=== PATIENT | female | born 2000 | race Caucasian/White ===

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

== ENCOUNTER 2021-09-27 09:51 | Emergency (ER) | payer OTHER, SELFPAY ==
[2021-09-27 09:52] VITALS: BP 127/65; PULSE 72; RESP 16; TEMP 36.6; O2SAT 99; BMI 20.7
--- NOTE | 2021-09-27 10:05 | CT_ITS ---
STUDY: CT ABDOMEN AND PELVIS WITH CONTRAST REASON FOR EXAM: Female, 21 years old. RLQ abdominal pain RADIATION DOSAGE (If Supplied By Facility): CTDIvol = ( 9.39 ) mGy, DLP = ( 271.47 ) mGycm TECHNIQUE: Transaxial images were obtained from the dome of the diaphragm to the symphysis pubis without oral contrast. IV 100mL Isovue-300 was administered. Sagittal and coronal images were reconstructed. Individualized dose optimization techniques were used for this CT. COMPARISON: None. FINDINGS: The visualized lung bases are unremarkable. The visualized portions of the heart are within normal limits. Normal liver. Normal gallbladder and extrahepatic biliary system. Normal spleen. Normal pancreas. Normal bilateral adrenal glands. Normal right kidney. Normal left kidney. Normal visualized stomach. Normal small intestine. Large amount of fecal material is seen in the colon. The appendix is visualized and appears normal. Normal abdominal aorta. Normal inferior vena cava. Normal retroperitoneum. Normal urinary bladder. There is a 2 cm x 2.5 cm right ovarian cyst. Small amount of free fluid is seen in the pelvis. Normal abdominal wall. Normal osseous structures. CT/Abdomen/Pelvis W IV Cont ONLY IMPRESSION: 2.5 cm x 2 cm right ovarian cyst. Small amount of free fluid in the pelvis. Electronically Signed: Rashid Alfredo MD at 11:15 EDT ,
--- NOTE | 2021-09-27 10:06 | EDS_ITS ---
HPI HPI - GI History of Present Illness Chief Complaint: Abd Pain Narrative Narrative: Patient who denies significant past medical history presents with her mother because of right lower quadrant abdominal pain. She states that yesterday she began having sharp, stabbing pain in her side on the right. It now moved towards her right lower quadrant. She states it feels like someone is stabbing her. She denies any fevers or chills. No nausea or vomiting. No dysuria or hematuria. No prior abdominal surgeries. Pain is worse with standing and walking. She also states that she feels constipated although she had a normal bowel movement yesterday. Last menstrual period was 2 weeks ago and regular. She tried Tums which did not help. No other exacerbating or alleviating factors. PFSH PFSH Home Medications sulfamethoxazole-trimethoprim [Bactrim DS] 1 tab PO BID #14 tab 09/27/21 [Rx Last Taken Unknown] Allergy/AdvReac Type Severity Reaction Status Date / Time No Known Allergies Allergy Verified 09/27/21 09:53 Social History Smoking Status: Never smoker ROS ROS ED ROS Narrative Constitutional: No fever, no chills. HEENT: No sore throat. No neck pain. No loss of vision. No rhinorrhea. Cardiovascular: No chest pain. No palpitations. No pedal edema. Respiratory: No cough, no shortness of breath. Abdominal: Right lower quadrant abdominal pain. No nausea. No vomiting. Genitourinary: No dysuria. No hematuria. Right flank pain yesterday, radiates towards front now. Musculoskeletal: No myalgias. No arthralgias. Neurologic: No headaches. No dizziness. No lightheadedness. Skin: No rash. No change in color. Psychiatric: No depression. No anxiety. EXAM Physical Exam Narrative Exam Narrative: Afebrile. Vital signs noted. HEENT: Normocephalic. Atraumatic. PERRL, EOMI. Neck soft and supple. No point tenderness or step off. Cardiovascular: Regular rate and rhythm. No murmurs, rubs, or gallops appreciated. Respiratory: No tachypnea. Lungs clear to auscultation bilaterally. Gastrointestinal: Abdomen soft, with tenderness over McBurney's point with normoactive bowel sounds. No rebound or guarding. Negative heel strike. No peritoneal signs initially. Neurological: Awake. Alert. Nonfocal, nonlateralizing. Skin: No rash. Normal color. No pallor. Musculoskeletal: No pedal edema. Full range of motion extremities. Const Vital Signs: 09/27/21 09:52 09/27/21 11:40 Temperature 98 F Temperature Source Temporal Pulse Rate 72 67 Respiratory Rate 16 16 Blood Pressure 127/65 H 112/68 Blood Pressure Mean 85 82 Pulse Ox 99 96 Oxygen Delivery Method Room Air Room Air MDM MDM MDM Narrative Medical decision making narrative: In the differential diagnosis is appendicitis versus ureterolithiasis versus ovarian pathology. Comprehensive work-up was pursued. I did order her morphine, but she states she does not like to take analgesics. She was bolused normal saline. I will obtain a CBC, CMP, serum , and urinalysis along with CT of the abdomen and pelvis with IV contrast. CBC returns with normal white count of 8.7, hemoglobin normal at 12.2, normal platelet count of 208. Electrolyte panel shows BUN elevated at 20 with a creatinine of 0.9. Other electrolytes are within normal limits. Serum is negative. LFTs are grossly unremarkable. She does have greater than 100 WBCs and positive nitrites in her urine. She will be treated with a prescription for Bactrim, and declined her first dose of antibiotic here in the emergency department. CT of the abdomen and pelvis shows an ovarian cyst that is 2.5 x 2.5 cm with a small amount of free fluid in the pelvis. Appendix was visualized and appears normal. She had been ordered morphine but declined. She was bolused normal saline 1 L intravenously. At this point in time, I feel she be discharged safely home with treatment for her urinary tract infection. She will follow up with her primary care provider. Return instructions to the emergency department were reviewed. Disposition is discharged home in stable condition. Lab Data Labs: Laboratory Results - last 24 hr 09/27/21 09/27/21 09/27/21 10:25 10:25 10:25 WBC 8.7 RBC 4.53 Hgb 12.2 Hct 37.4 MCV 82.6 MCH 26.9 L MCHC 32.6 RDW Std Deviation 42.1 RDW Coeff of Vanessa 14.1 Plt Count 208 MPV 9.5 Immature Gran % (Auto) 0.200 Neut % (Auto) 75.2 H Lymph % (Auto) 17.1 L [place] % (Auto) 7.0 Eos % (Auto) 0.2 Baso % (Auto) 0.3 Absolute Neuts (auto) 6.5 Absolute Lymphs (auto) 1.48 Nucleated RBC % 0 Sodium 139 Potassium 3.9 Chloride 107 Carbon Dioxide 30.0 Anion Gap 2 L BUN 20 H Creatinine 0.90 Estim Creat Clear Calc 94.25 Est GFR (MDRD) Af Amer 103 Est GFR (MDRD) Non-Af 85 BUN/Creatinine Ratio 22.3 H Glucose 95 Calcium 8.6 Total Bilirubin 0.30 AST 30 ALT 23 Alkaline Phosphatase 83 Total Protein 7.5 Albumin 3.8 Globulin 3.7 Albumin/Globulin Ratio 1.0 Serum , Qual NEGATIVE Urine Color Urine Clarity Urine pH Ur Specific Success Urine Protein Urine Glucose (UA) Urine Ketones Urine Occult Blood Urine Nitrite Urine Bilirubin Urine Urobilinogen Ur Leukocyte Esterase Urine RBC Urine WBC Ur Squamous Epith Cells Urine Bacteria Urine Mucus 09/27/21 10:28 WBC RBC Hgb Hct MCV MCH MCHC RDW Std Deviation RDW Coeff of Vanessa Plt Count MPV Immature Gran % (Auto) Neut % (Auto) Lymph % (Auto) [place] % (Auto) Eos % (Auto) Baso % (Auto) Absolute Neuts (auto) Absolute Lymphs (auto) Nucleated RBC % Sodium Potassium Chloride Carbon Dioxide Anion Gap BUN Creatinine Estim Creat Clear Calc Est GFR (MDRD) Af Amer Est GFR (MDRD) Non-Af BUN/Creatinine Ratio Glucose Calcium Total Bilirubin AST ALT Alkaline Phosphatase Total Protein Albumin Globulin Albumin/Globulin Ratio Serum , Qual Urine Color Yellow Urine Clarity Cloudy Urine pH 6.0 Ur Specific Success 1.015 Urine Protein 100 H Urine Glucose (UA) Normal Urine Ketones 5 H Urine Occult Blood 150 H Urine Nitrite Positive H Urine Bilirubin Negative Urine Urobilinogen Normal Ur Leukocyte Esterase 500 H Urine RBC 0-5 SEEN Urine WBC >100 SEEN Ur Squamous Epith Cells 0-5 SEEN Urine Bacteria 4+ Urine Mucus 1+ Radiography Diagnostic Testing: Clinical Impression(s) from Imaging Studies Abdomen/Pelvis CT 09/27/21 10:05 IMPRESSION: 2.5 cm x 2 cm right ovarian cyst. Small amount of free fluid in the pelvis. Electronically Signed: Rashid Alfredo MD at 11:15 EDT , Discharge Plan Triage Chief Complaint: Abd Pain ED Provider: Benja Agustin Dx/Rx/DC Orders Clinical Impression: Abdominal pain, UTI (urinary tract infection), Ovarian cyst Instructions: ED Abdominal Pain Unkn Cause Fem, ED Constipation (Adult), ED Ovarian Cyst, ED CYSTITIS Female Adult Prescriptions: New sulfamethoxazole-trimethoprim [Bactrim DS] 800-160 mg tablet 1 tab PO BID Qty: 14 RF: 0 Primary Care Provider: Fabian Casillas Referrals: Fabian Casillas MD [Primary Care Provider] - 3-5 Days if not improving Disposition Disposition: Home, Self Care
[2021-09-27 10:31] LABS: Color, Urine Yellow (Yellow); Glucose, Dipstick Normal (Normal); Ketone-Dipstick 5 mg/dl (Negative); Leukocyte Esterase-Dipstick 500 /ul (Negative); Nitrite-Dipstick Positive (Negative); Occult Blood-Urine 150 /ul (Negative); Protein-Dipstick 100 mg/dl (Negative); Specific Gravity, Urine 1.015 (1.002-1.030); Urine Bilirubin Dipstick Negative (Negative); Urine Clarity Cloudy (Clear); Urine Urobilinogen Normal (Normal)
[2021-09-27 10:36] LABS: Absolute Lymphocyte Count 1.48 X10^3/uL (0.83-4.51); Absolute Neutrophil Count 6.5 X10^3/uL (2.0-7.7); Basophil# 0.03 X10^3/uL; Basophil% 0.3 % (0-1); Eosinophil# 0.02 X10^3/uL; Eosinophils% 0.2 % (0-5); Hematocrit 37.4 % (37-47); Hemoglobin 12.2 g/dL (12.0-15.0); Lymphocyte # 1.48 X10^3/ul (0.83-4.51); Lymphocyte % 17.1 % (19-41); Mean Corp Hgb Conc 32.6 g/dL (32-36); Mean Corpuscular Hgb 26.9 pg (27.0-32.0); Mean Corpuscular Volume 82.6 fL (81-99); Mean Platelet Vol. 9.5 fl (6.2-12.0); Monocyte# 0.61 X10^3/uL; NRBC Flagged by Analyzer 0 % (0-5); Neutrophil # 6.51 X10^3/uL (2.7-7.7); Neutrophil % 75.2 % (47-70); Platelet Count 208 K/mm3 (150-450); RBC Distribution Width CV 14.1 % (11.6-14.6); RBC Distribution Width SD 42.1 fl (35.1-43.9); Red Blood Count 4.53 M/mm3 (4.2-5.4); White Blood Count 8.7 K/mm3 (4.4-11.0)
[2021-09-27 10:40] LABS: White Blood Cells >100 SEEN /hpf (0-5)
[2021-09-27 10:41] LABS: Bacteria 4+ /hpf (None Seen); Mucous, Urine 1+ /hpf (<or=2+); Red Blood Cells-Urine 0-5 SEEN /hpf (0-5); Squamous Epithelial Cells - UA 0-5 SEEN /hpf (5-10)
[2021-09-27] MEDS: 0.9% Normal Saline 1,000 ML 1000 ML IV (10:49)
[2021-09-27 10:50] LABS: Internal QC Validated? YES +Cl - CLEAR BKGD; Pregnancy, Serum, hCG Quali. NEGATIVE Negative
[2021-09-27 10:57] LABS: AST(SGOT) 30 U/L (15-37); Alanine Aminotransfer ALT/SGPT 23 U/L (13-56); Albumin, Serum 3.8 g/dL (3.2-5.0); Alkaline Phosphatase 83 U/L (45-117); Anion Gap 2 (5-15); BUN 20 mg/dL (7-18); BUN/Creat Ratio 22.3 RATIO (10-20); Calcium,Total 8.6 mg/dL (8.5-10.1); Chloride 107 mmol/L (98-107); EST Glomerular Filtration Rate 85 mL/min (>60); Est Glom Filt Rate - Afr Amer 103 mL/min (>60); Estimated Creatinine Clearance 94.25 ml/min; Globulin 3.7 g/dL (2.2-4.2); Glucose 95 mg/dL (74-106); Potassium 3.9 mmol/L (3.5-5.1); Protein, Total 7.5 g/dL (6.4-8.2); Sodium Level 139 mmol/L (136-145)
[2021-09-27 11:40] VITALS: BP 112/68; PULSE 67; RESP 16; O2SAT 96
== END 2021-09-27 12:04 | disposition home or self-care (01) ==
PROVIDERS: Emergency Provider Emergency Medicine; PCP Family Medicine; Visit Provider Emergency Medicine
DX: N39.0 Urinary tract infection, site not specified (principal); N83.201 Unspecified ovarian cyst, right side
CPT/HCPCS: 74177; 80053; 81001; 84703; 85025; 96361; 96374; 99283; J7030; Q9967; A4216

== ENCOUNTER → 2022-04-10 | Outpatient (CLI) | payer OTHER, SELFPAY ==
[2022-04-14 11:56] LABS: Gonococcus By Nucleic Acid AMP Negative (Negative)
[2022-04-14 11:57] LABS: Chlamydia By Nucleic Acid AMP Positive (Negative)
[2022-04-16 11:11] LABS: HPV Reflexed? NOT INDICATED
== END | disposition home or self-care (01) ==
LOC: LABSPEC 13:55
PROVIDERS: PCP Family Medicine; Visit Provider Student in an Organized Health Care Education/Training Program
DX: Z12.4 Encounter for screening for malignant neoplasm of cervix (principal); Z11.3 Encounter for screening for infections with a predominantly sexual mode of transmission
CPT/HCPCS: 87491; 87591; 88175; G0145

== ENCOUNTER → 2022-06-19 | Outpatient (CLI) | payer OTHER, SELFPAY ==
[2022-06-20 22:06] LABS: Chlamydia By Nucleic Acid AMP Negative (Negative)
[2022-06-21 11:04] LABS: Gonococcus By Nucleic Acid AMP Negative (Negative)
== END | disposition home or self-care (01) ==
LOC: LABSPEC 09:08
PROVIDERS: PCP Family Medicine; Visit Provider Student in an Organized Health Care Education/Training Program
DX: Z11.3 Encounter for screening for infections with a predominantly sexual mode of transmission (principal)
CPT/HCPCS: 87491; 87591

== ENCOUNTER → 2022-08-02 | Outpatient (CLI) | payer OTHER, SELFPAY ==
--- NOTE | 2022-08-02 13:50 | RAD_ITS ---
STUDY: X-RAY - LEFT HAND REASON FOR EXAM: Female, 22 years old. CONTUSION OF LEFT HAND TECHNIQUE: 3 view(s) of the hand. COMPARISON: None. FINDINGS: Normal radiocarpal articulation. Normal distal radioulnar joint. Normal visualized carpal bones. Normal carpal articulations Normal carpometacarpal articulation of the thumb. Normal second through fifth carpometacarpal joints. Normal metacarpi. Normal metacarpophalangeal joint of the thumb. Normal interphalangeal joint of the thumb. Normal proximal and distal phalanges of the thumb. Normal metacarpophalangeal joints of the second through fifth fingers. Normal proximal and distal interphalangeal joints of the second through fifth fingers. Normal phalanges of the second through fifth fingers. The soft tissue structures are unremarkable. RAD/Hand Min 3 Views IMPRESSION: Normal x-ray examination of the hand. Electronically Signed: Rashid Alfredo MD at 15:46 EST ,
== END | disposition home or self-care (01) ==
LOC: MTRAD 13:48
PROVIDERS: PCP Family Medicine; Referring Provider Family Medicine; Visit Provider Family Medicine
DX: S60.222A Contusion of left hand, initial encounter (principal)
CPT/HCPCS: 73130

== ENCOUNTER → 2023-01-08 | Outpatient (CLI) | payer OTHER, SELFPAY ==
--- NOTE | 2023-01-08 11:10 | RAD_ITS ---
STUDY: X-RAY - LEFT KNEE REASON FOR EXAM: Female, 22 years old. PAIN TECHNIQUE: 3 view(s) of the knee. COMPARISON: None. FINDINGS: Normal visualized distal femur. Normal visualized proximal tibia and fibula. Normal proximal tibiofibular articulation. Normal medial femorotibial compartment. Normal lateral femorotibial compartment. Normal patellofemoral articulation. There is no demonstrated joint effusion. The soft tissue structures are unremarkable. RAD/Knee 3 Views IMPRESSION: Normal x-ray examination of the knee. Electronically Signed: Anjum Britton (Brooks), at 8:21 EDT ,
== END | disposition home or self-care (01) ==
LOC: MTLAB 11:07
PROVIDERS: PCP Family Medicine; Referring Provider Family Medicine; Visit Provider Family Medicine
DX: M25.562 Pain in left knee (principal)
CPT/HCPCS: 73562

== ENCOUNTER 2023-07-18 17:41 | Emergency (ER) | payer OTHER, SELFPAY ==
[2023-07-18 17:42] VITALS: BP 126/77; PULSE 75; RESP 15; TEMP 36.8; O2SAT 100
--- OUTSIDE RECORDS SUMMARY | 2023-07-18 18:57 | XMS RPT_ITS | CCD ---
Author Name Unknown Address [address] [facility] [address] [place] [address] Organization [facility] Care Team Providers [employer] Consultant Name Role Phone Unavailable Primary Care Provider Unavailabl e Medications Current Medications Medication Drug Class(es) Dates Sig (Normalized) Sig (Original) ofloxacin 3 mg/ml ophthalmic solution (1 source) Quinolone Antimicrobial Start: 07-03-2023 End: 07-10-2023 take 2 drop(s) into the eye(s) three times daily ofloxacin (OCUFLOX) 0.3 % ophthalmic solution Indications: Left eye pain , Foreign body sensation, left eye Use 2 Drops in the left eye three times a day for 7 days. 5 mL 0 07/03/2023 07/10/2023 Active Completed/Discontinued Medications Medication Drug Class(es) Dates Sig (Normalized) Sig (Original) ciprofloxacin 3 mg/ml ophthalmic solution (2 sources) Quinolone Antimicrobial Start: 05-02-2023 End: 07-03-2023 take 2 drop(s) into the eye(s) twice daily ciprofloxacin HCl (CILOXAN) 0.3 % ophthalmic solution INSTILL 2 DROPS TO AFFECTED EYE (S) TWICE DAILY 0 05/02/2023 07/03/2023 Discontinued Problems Problem Classification Problem Date Documented Da te Episodic/Chronic Other eye disorders (1 source) Red eye; Translations: [Other specified disorders of eye and adnexa] 05-03-2023 Episodic Other eye disorders (1 source) Pain of left eye; Translations: [Ocular pain, left eye] 07-03-2023 Episodic Other eye disorders (1 source) Feeling of sand or foreign body in eye; Translations: [Foreign body sensation, left eye] 07-03-2023 Episodic Superficial injury; contusion (1 source) Abrasion of cornea of right eye; Translations: [Injury of conjunctiva and corneal abrasion without foreign body, right eye, subsequent encounter] 05-03-2023 Episodic Results Test Name Value Interpretation Reference Range Facil ity Vital Signs Date Time Vital Sign Value Performing Clinician Audrey powers 07-03-2023 12:35-0500 Body temperature 98.71 [degF] Aryatul Soriaaugh PA-C Work Phone: [facility] 07-03-2023 12:35-0500 Body weight 60.35 kg Aryatul Soriaaugh PA-C Work Phone: [facility] 07-03-2023 12:35-0500 Heart rate 70 /min Ary Estellaaugh PA-C Work Phone: [facility] 07-03-2023 12:35-0500 Respiratory rate 18 /min Ary Estellaaugh PA-C Work Phone: [facility] 07-03-2023 12:35-0500 SaO2% (BldA) [Mass fraction] 98 % Ary Estellaaugh PA-C Work Phone: [facility] 05-03-2023 15:12-0400 Body height 170.2 cm Melvina Hanson LEAN FACILITATOR.SUCTION PLATE CARRIER CLEANER Work Phone: [facility] 05-03-2023 15:12-0400 Body temperature 97 [degF] Melvina Hanson LEAN FACILITATOR.SUCTION PLATE CARRIER CLEANER Work Phone: [facility] 05-03-2023 15:12-0400 Body weight 61.69 kg Melvina Hanson LEAN FACILITATOR.SUCTION PLATE CARRIER CLEANER Work Phone: [facility] 05-03-2023 15:12-0400 Diastolic blood pressure 57 mm[Hg] Melvina Hanson LEAN FACILITATOR.SUCTION PLATE CARRIER CLEANER Work Phone: [facility] 05-03-2023 15:12-0400 Heart rate 75 /min Melvina Hanson LEAN FACILITATOR.SUCTION PLATE CARRIER CLEANER Work Phone: [facility] 05-03-2023 15:12-0400 Respiratory rate 16 /min Melvina Hanson LEAN FACILITATOR.SUCTION PLATE CARRIER CLEANER Work Phone: [facility] 05-03-2023 15:12-0400 SaO2% (BldA) [Mass fraction] 98 % Melvina Hanson APRN.CNP Work Phone: [facility] 05-03-2023 15:12-0400 Systolic blood pressure 109 mm[Hg] Melvina Hanson APRN.CNP Work Phone: [facility] Encounters Encounter Date Encounter Type Care Provider Facility Start: 07-03-2023 End: 07-03-2023 ambulatory Facility:[facility] Start: 07-03-2023 End: 07-03-2023 Patient encounter procedure Ary Foley PA-C Work Phone: [facility] Plan of Treatment Date Care Activity Detail Author Start: 03-09-2023 Influenza vaccination Influenza Vacc ine (#1) [facility] Start: 07-09-2022 Depression Assessment Depression Ass essment [facility] Start: 2022 Pap Testing Pap Testing [facility] Start: 2022 Screening for malign ant neoplasm of cervix Pap Testing [facility] Start: 02-21-2020 Urine microalbumin profile DTa P,Tdap,Td Vaccine (1 - Tdap) [facility] Start: 2019 Chlamydia Screening (18-24) Chlamydia Screening (18-24) [facility] Start: 2019 GC (Gonorrhea) Scree gayle (18-24) GC (Gonorrhea) Screening (18-24) [facility] Start: 2019 Hepatitis C Screening Hepatitis C [facility] Start: 2019 Hepatitis C screening Hepatitis C [facility] Start: 2019 HIV Screening HIV Screening [facility] Start: 2019 HIV screening HIV Screening [facility] Start: 2019 Screening for Chlamy doni trachomatis Chlamydia Screening (18-24) [facility] Start: 2017 Meningococcal B Vacc ine: Consider Based On Risk (1 of 2 - Patient Seeks Protection) Meningococcal B Vaccine: Consider Based On Risk (1 of 2 - Patient Seeks Protection) [facility] Start: 2015 Peds To Adult Transi tion Annual Assessment Peds To Adult Transition Annual Assessment [facility] Start: 2013 Peds To Adult Transi tion Initial Discussion Peds To Adult Transition Initial Discussion [facility] Start: 2010 HPV Vaccine (1 - 2-d ose series) HPV Vaccine (1 - 2-dose series) [facility] Start: 2001 Covid-19 Vaccine (#1) Covid-19 Vacci ne (#1) [facility] Start: 2001 Hepatitis B Vaccine (1 of 3 - 3-dose series) Hepatitis B Vaccine (1 of 3 - 3-dose series) [facility] Payers Date Payer Category Payer Unknown [id number] 2021 Unknown MMO MMO [employer] PPO [id number] 2021-Present [phone] [address] [place] [address] PPO [id number] 2021 Unknown [id number] Social History Date Type Detail Facility Tobacco smoking stat [facility] Tobacco smoking consumption unknown [facility] Start: 2001 Sex Assigned At Not on file [facility] Gender identity Not on file [facility] in Medical Equipment Procedure Code Equipment Code Equipment Origin al Text Equipment Identifier Dates fluorescein 1 mg 1 Strip (FLUORETS) Start: 07-03-2023 End: 07-03-2023 Progress note 07-03-2023 Note Date & Type Note Facility 07-03-2023 Note HNO ID: [id number] Author: Ary Foley PA-C Service: ? Author Type: Physician Machine Heel Sprayer Type: Progress Notes Filed: 07/03/2023 12:44 PM Note Text: 07/03/2023 Patient presents with: Eye Problem SUBJECTIVE: This is a 23 year old that is here today here for left eye injection, light sensitivity, burning/pain under the lid and FB sensation up under the left upper lid since last night. She wears contacts. No exudate or matting. No vision changes. No overt concern for foreign object or trauma. No itchy or watery eyes. No other allergy or sinus symptoms. Denies fever, chills, sweats, or fatigue. Patient denies wheezing, shortness of breath, increased WOB, or chest pain. No other URI or sick symptoms. Pain on scale of 0-10 with 0 being no pain and 10 being greatest pain: 2 Nothing makes the symptoms better. Nothing makes them worse. Self-treatment:. none The severity is mild and the symptoms are not improving. The patient did not have a similar problem in the last 3 months. The patient did not take any antibiotics in the last 3 months. Barriers to learning: none. Reviewed meds, OTCs, herbals or supplements. Reviewed allergies, medications, social history, and past medical history. No past medical history on file. ALLERGIES Patient has no known allergies. MEDICATIONS Current Outpatient Medications Medication Sig ciprofloxacin HCl (CILOXAN) 0.3 % ophthalmic solution INSTILL 2 DROPS TO AFFECTED EYE (S) TWICE DAILY clindamycin (CLEOCIN) 300 mg capsule Take 1 capsule by mouth every 6 hours. No current facility-administered medications for this visit. Medications and allergies reviewed by this provider SOCIAL HISTORY REVIEW OF SYSTEMS Review of Systems ROS: constitutional-neg, HENT-neg, Eyes- eye complaint, heart-neg, respiratory-neg, skin-neg, lymph-neg, neuro- neg, Allergy- neg- All systems neg except as noted above in HPI. OBJECTIVE: Pulse 70 Temp 37.1 ?C (98.7 ?F) Resp 18 Wt 60.3 kg (133 lb 0.8 oz) SpO2 98% BMI 20.84 kg/m? . Vital signs reviewed by this provider. Physical Exam Vitals reviewed. Constitutional: General: She is not in acute distress. Appearance: Normal appearance. She is well-developed and normal weight. She is not ill-appearing, toxic-appearing or diaphoretic. HENT: Head: Normocephalic and atraumatic. No right periorbital erythema or left periorbital erythema. Salivary Glands: Right salivary gland is not diffusely enlarged or tender. Left salivary gland is not diffusely enlarged or tender. Nose: Right Sinus: No maxillary sinus tenderness or frontal sinus tenderness. Left Sinus: No maxillary sinus tenderness or frontal sinus tenderness. Eyes: General: Lids are normal. Vision grossly intact. No allergic shiner, visual field deficit or scleral icterus. Right eye: No foreign body, discharge or hordeolum. Left eye: No foreign body, discharge or hordeolum. Extraocular Movements: Extraocular movements intact. Right eye: Normal extraocular motion and no nystagmus. Left eye: Normal extraocular motion and no nystagmus. Conjunctiva/sclera: Right eye: Right conjunctiva is not injected. No chemosis, exudate or hemorrhage. Left eye: Left conjunctiva is injected. No chemosis, exudate or hemorrhage. Pupils: Pupils are equal, round, and reactive to light. Pupils are equal. Comments: Eyes: PERRL. EOMI. Vision intact. Fluorescein dye applied and eye examined under black light. No obvious abrasion or ulcer noted on cornea or elsewhere. No foreign object. Tolerated well Neurological: Mental Status: She is alert. Psychiatric: Behavior: Behavior is cooperative. ASSESSMENT/PLAN: 1. Left eye pain - ICD9: 379.91, ICD10: H57.12 (primary diagnosis) 2. Foreign body sensation, left eye - ICD9: V41.1, ICD10: H57.8A2 Exam normal - OFLOXACIN 0.3 % EYE DROPS She has an Waxing Machine Operator of her own- she is going to try and get in with them first, today. - CONSULT TO OPHTHALMOLOGY- needs more work up/better exam- same day referral provided. Call PCP if sx worsen or no better. If you get eye pain or vision changes- go to ER If symptoms worsen, or new symptoms develop go to ER. If you have worsening of breathing or breathing changes- go to ER. If you have persistent fever unrelieved by Tylenol/Motrin- go to the ER. Follow up as needed. Pt agreeable with plan and verbalized understanding. Barriers to learning: none. Ary Foley PA-C Medical Decision Making: Problems: Low: Acute, uncomplicated illness or injury Data: Unique test(s) ordered: 1 Risk: Low: Low risk from testing/treatment Moderate: Drug management Medical Decision Making Level: 3 - Low I spent a total of 20 minutes on the date of the service which included preparing to see the patient, [id number] patient care, completing clinical documentation, performing a medically appropriate examination, counseling and educating t (more content not included)... [facility] Instructions 07-03-2023 Patient Instructions Note Date & Type Note Facility 07-03-2023 Instructions Ary Foley PA-C - 07/03/2023 12:32 PM EST ASSESSMENT/PLAN: 1. Left eye pain - ICD9: 379.91, ICD10: H57.12 (primary diagnosis) 2. Foreign body sensation, left eye - ICD9: V41.1, ICD10: H57.8A2 Exam normal - OFLOXACIN 0.3 % EYE DROPS Try your ophthal. First - CONSULT TO OPHTHALMOLOGY- needs more work up/better exam Call PCP if sx worsen or no better. If you get eye pain or vision changes- go to ER If symptoms worsen, or new symptoms develop go to ER. If you have worsening of breathing or breathing changes- go to ER. If you have persistent fever unrelieved by Tylenol/Motrin- go to the ER. Follow up as needed. Pt agreeable with plan and verbalized understanding. Barriers to learning: none. Ary Foley PA-C documented in this encounter [facility] History of Present illness Narrative 07-03-2023 Ary Foley PA-C - 07/03/2023 12:21 PM EST Note Date & Type Note Facility 07-03-2023 History of Presen t illness Narrative 07/03/2023 Patient presents with: Eye Problem SUBJECTIVE: This is a 23 year old that is here today here for left eye injection, light sensitivity, burning/pain under the lid and FB sensation up under the left upper lid since last night. She wears contacts. No exudate or matting. No vision changes. No overt concern for foreign object or trauma. No itchy or watery eyes. No other allergy or sinus symptoms. Denies fever, chills, sweats, or fatigue. Patient denies wheezing, shortness of breath, increased WOB, or chest pain. No other URI or sick symptoms. Pain on scale of 0-10 with 0 being no pain and 10 being greatest pain: 2 Nothing makes the symptoms better. Nothing makes them worse. Self-treatment:. none The severity is mild and the symptoms are not improving. The patient did not have a similar problem in the last 3 months. The patient did not take any antibiotics in the last 3 months. Barriers to learning: none. Reviewed meds, OTCs, herbals or supplements. Reviewed allergies, medications, social history, and past medical history. No past medical history on file. ALLERGIES Patient has no known allergies. MEDICATIONS Current Outpatient Medications Medication Sig ciprofloxacin HCl (CILOXAN) 0.3 % ophthalmic solution INSTILL 2 DROPS TO AFFECTED EYE (S) TWICE DAILY clindamycin (CLEOCIN) 300 mg capsule Take 1 capsule by mouth every 6 hours. No current facility-administered medications for this visit. Medications and allergies reviewed by this provider SOCIAL HISTORY REVIEW OF SYSTEMS Review of Systems ROS: constitutional-neg, HENT-neg, Eyes- eye complaint, heart-neg, respiratory-neg, skin-neg, lymph-neg, neuro- neg, Allergy- neg- All systems neg except as noted above in HPI. OBJECTIVE: Pulse 70 Temp 37.1 C (98.7 F) Resp 18 Wt 60.3 kg (133 lb 0.8 oz) SpO2 98% BMI 20.84 kg/m . Vital signs reviewed by this provider. Physical Exam Vitals reviewed. Constitutional: General: She is not in acute distress. Appearance: Normal appearance. She is well-developed and normal weight. She is not ill-appearing, toxic-appearing or diaphoretic. HENT: Head: Normocephalic and atraumatic. No right periorbital erythema or left periorbital erythema. Salivary Glands: Right salivary gland is not diffusely enlarged or tender. Left salivary gland is not diffusely enlarged or tender. Nose: Right Sinus: No maxillary sinus tenderness or frontal sinus tenderness. Left Sinus: No maxillary sinus tenderness or frontal sinus tenderness. Eyes: General: Lids are normal. Vision grossly intact. No allergic shiner, visual field deficit or scleral icterus. Right eye: No foreign body, discharge or hordeolum. Left eye: No foreign body, discharge or hordeolum. Extraocular Movements: Extraocular movements intact. Right eye: Normal extraocular motion and no nystagmus. Left eye: Normal extraocular motion and no nystagmus. Conjunctiva/sclera: Right eye: Right conjunctiva is not injected. No chemosis, exudate or hemorrhage. Left eye: Left conjunctiva is injected. No chemosis, exudate or hemorrhage. Pupils: Pupils are equal, round, and reactive to light. Pupils are equal. Comments: Eyes: PERRL. EOMI. Vision intact. Fluorescein dye applied and eye examined under black light. No obvious abrasion or ulcer noted on cornea or elsewhere. No foreign object. Tolerated well Neurological: Mental Status: She is alert. Psychiatric: Behavior: Behavior is cooperative. ASSESSMENT/PLAN: 1. Left eye pain - ICD9: 379.91, ICD10: H57.12 (primary diagnosis) 2. Foreign body sensation, left eye - ICD9: V41.1, ICD10: H57.8A2 Exam normal - OFLOXACIN 0.3 % EYE DROPS She has an Waxing Machine Operator of her own- she is going to try and get in with them first, today. - CONSULT TO OPHTHALMOLOGY- needs more work up/better exam- same day referral provided. Call PCP if sx worsen or no better. If you get eye pain or vision changes- go to ER If symptoms worsen, or new symptoms develop go to ER. If you have worsening of breathing or breathing changes- go to ER. If you have persistent fever unrelieved by Tylenol/Motrin- go to the ER. Follow up as needed. Pt agreeable with plan and verbalized understanding. Barriers to learning: none. Ary Foley PA-C Medical Decision Making: Problems: Low: Acute, uncomplicated illness or injury Data: Unique test(s) ordered: 1 Risk: Low: Low risk from testing/treatment Moderate: Drug management Medical Decision Making Level: 3 - Low I spent a total of 20 minutes on the date of the service which included preparing to see the patient, [id number] patient care, completing clinical documentation, performing a medically appropriate examination, counseling and educating the patient/family/caregiver, and ordering medications, tests, or procedures. documented in this encounter [facility] Progress note 05-03-2023 Note Date & Type Note Facility 05-03-2023 Note HNO ID: [id number] Author: Melvina Hanson APRN.[place] Service: ? Author Type: Nurse Practitioner Type: Progress Notes Filed: 05/03/2023 3:58 PM Note Text: SUBJECTIVE: Nataliia Douglass is a 23 year old female. Who presents today with a corneal abrasion. She saw her family md yesterday and he gave her antibiotic eye drops for treatment. Today the upper and lower eyelid is swollen. The conjunctiva is more red and it continues to water. She has not been able to get into contact with her doctor today. Patient states that her eye ball is painful she states it is a 3/10. She feels like there is an eyelash in the eye. She denies any vision changes. HPI No past medical history on file. No family history on file. ALLERGIES No Known Allergies Current Outpatient Medications Medication Sig Dispense Refill ciprofloxacin HCl (CILOXAN) 0.3 % ophthalmic solution INSTILL 2 DROPS TO AFFECTED EYE (S) TWICE DAILY clindamycin (CLEOCIN) 300 mg capsule Take 1 capsule by mouth every 6 hours. No current facility-administered medications for this visit. OBJECTIVE: BP 109/57 Pulse 75 Temp 36.1 ?C (97 ?F) Resp 16 Ht 170.2 cm (5' 7 ) Wt 61.7 kg (136 lb) SpO2 98% BMI 21.30 kg/m? ROS all other systems reviewed and are negative Physical Exam Constitutional: Well developed, well nourished, NAD, AANDO X3. ENT: Head is atraumatic, airway patent, mucosal membranes moist. Eyes: EOMI, PERRL, no drainage, right conjuctiva is red upper and lower eyelids are swollen and eye is water y It was a pleasure to take care of Nataliia Douglass today. Patient will go to the eye doctor today for a complete eye exam. With a red painful eye she could have an acute narrow angle glaucoma, or an iritis. She will go to the ER for worsening symptoms or concerns. Patient verbalized understanding of plan of care and is in agreement. ASSESSMENT/PLAN: 1. Red eye - ICD9: 379.93, ICD10: H57.89 (primary diagnosis) 2. Abrasion of right cornea, subsequent encounter - ICD9: V58.89, ICD10: S05.01XD Melvina Hanson APRN.[place] [facility] History of Present illness Narrative 05-03-2023 Melvina Hanson APRN.[place] - 05/03/2023 3:30 PM EDT Note Date & Type Note Facility 05-03-2023 History of Presen t illness Narrative SUBJECTIVE: Nataliia Douglass is a 23 year old female. Who presents today with a corneal abrasion. She saw her family md yesterday and he gave her antibiotic eye drops for treatment. Today the upper and lower eyelid is swollen. The conjunctiva is more red and it continues to water. She has not been able to get into contact with her doctor today. Patient states that her eye ball is painful she states it is a 3/10. She feels like there is an eyelash in the eye. She denies any vision changes. HPI No past medical history on file. No family history on file. ALLERGIES No Known Allergies Current Outpatient Medications Medication Sig Dispense Refill ciprofloxacin HCl (CILOXAN) 0.3 % ophthalmic solution INSTILL 2 DROPS TO AFFECTED EYE (S) TWICE DAILY clindamycin (CLEOCIN) 300 mg capsule Take 1 capsule by mouth every 6 hours. No current facility-administered medications for this visit. OBJECTIVE: BP 109/57 Pulse 75 Temp 36.1 C (97 F) Resp 16 Ht 170.2 cm (5' 7 ) Wt 61.7 kg (136 lb) SpO2 98% BMI 21.30 kg/m ROS all other systems reviewed and are negative Physical Exam Constitutional: Well developed, well nourished, NAD, A&O X3. ENT: Head is atraumatic, airway patent, mucosal membranes moist. Eyes: EOMI, PERRL, no drainage, right conjuctiva is red upper and lower eyelids are swollen and eye is water y It was a pleasure to take care of Nataliia Douglass today. Patient will go to the eye doctor today for a complete eye exam. With a red painful eye she could have an acute narrow angle glaucoma, or an iritis. She will go to the ER for worsening symptoms or concerns. Patient verbalized understanding of plan of care and is in agreement. ASSESSMENT/PLAN: 1. Red eye - ICD9: 379.93, ICD10: H57.89 (primary diagnosis) 2. Abrasion of right cornea, subsequent encounter - ICD9: V58.89, ICD10: S05.01XD Melvina Hanson APRN.SUCTION PLATE CARRIER CLEANER documented in this encounter [facility] Evaluation note Note Date & Type Note Facility documented in this encounter [facility] Evaluation note Note Date & Type Note Facility documented in this encounter [facility] Summary Purpose Family History No Family History Records FoundNo Family History Records FoundNo Family History Records Found Advance Directives No Advanced Directives Records FoundNo Advanced Directives Records FoundNo Advanced Directives Records Found Reason for Referral Specialty Diagnoses / Procedures Referred By Tl novoa Referred To Contact Ophthalmology Diagnoses Left eye pain Foreign body sensation, left eye Procedures CONSULT TO OPHTHALMOLOGY OFFICE/OUTPATIENT [facility] MDM 60-74 MINUTES Ary Foley PA-C [address] [place] [address] Referral ID Status Reason Start Date Expiration Date Visits Requested Visits Authorized [id number] Authorized PCP Requested Referral 3 07/02/2024 1 1 Medications Administered Section Inactive Administered Medications - up to 3 most recent administrations Medication Order MAR Action Action Date Dose Rate Site fluorescein 1 mg 1 Strip (FLUORETS) 1 Strip, LEFT EYE, ONCE, 1 dose, On Sun07/03/23 at 1300, Moisten strip with sterile water. Place moistened strip at the formix into the lower cue-de-sac close to the punctus. Patient should close lid tightly over strip until desired amount of staining is obtained. Patient should blink several times after application. FOR THE EYE Given 07/03/2023 12:43 PM EST 1 Strip Additional Source Comments INFORMATION SOURCE (unrecogn ized section and content) DATE CREATED AUTHOR AUTHOR'S ORGANIZ ATION 10/14/2020 [facility] DATE CREATED AUTHOR AUTHOR'S ORGANIZ ATION 07/05/2023 [facility] Source Comments (unrecognize d section and content) In the event this informatio n is protected by the Federal Confidentiality of Alcohol and Drug Abuse Patient Records regulations: The Federal rules restrict any use of the information to criminally investigate or prosecute any alcohol or drug abuse patient.[facility] the event this information is protected by the Federal Confidentiality of Alcohol and Drug Abuse Patient Records regulations: The Federal rules restrict any use of the information to criminally investigate or prosecute any alcohol or drug abuse patient.[facility] Reason for Visit (unrecogniz ed section and content) Reason Comments Eye Problem FOR RECORDS PERTAINING TO PATIENTS WHO ARE OR HAVE BEEN ENROLLED IN A CHEMICAL DEPENDENCY/SUBSTANCEABUSE PROGRAM, SOME INFORMATION MAY BE OMITTED. This clinical summary was aggregated from multiple sources. Caution should be exercised in using it in the provision of clinical care. This summary normalizes information from multiple sources, and as a consequence, information in this document may materially change the coding, format and clinical context of patient data. In addition, data may be omitted in some cases. CLINICAL DECISIONS SHOULD BE BASED ON THE PRIMARY CLINICAL RECORDS. [email or web address] [facility]. provides no warranty or guarantee of the accuracy or completeness of information in this document.
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
[2023-07-18 20:07] VITALS: BMI 20.4
[2023-07-18 21:03] VITALS: O2SAT 97
[2023-07-18 21:06] VITALS: BP 126/78; PULSE 78; RESP 15; O2SAT 98
== END 2023-07-18 21:07 | disposition home or self-care (01) ==
PROVIDERS: Emergency Provider Emergency Medicine; PCP Family Medicine; Visit Provider Emergency Medicine
DX: S70.01XA Contusion of right hip, initial encounter (principal); S00.93XA Contusion of unspecified part of head, initial encounter; V49.40XA Driver injured in collision with unspecified motor vehicles in traffic accident, initial encounter
CPT/HCPCS: 70450; 72170; 73552; 99282